=== PATIENT | male | born 1965 | race Caucasian/White ===

== ENCOUNTER 2018-03-21 08:27 | Day surgery (SDC) | payer MEDICARE ==
[2018-03-20 11:30] VITALS: BMI 31.4
[2018-03-21] MEDS ORDERED: Lidocaine Hydrochloride 5 ML INJ ONE (10:21)
[2018-03-21] MEDS ORDERED: Propofol 10 mg/ml Inj (20 ML) ONE ×3 (10:21→11:00)
[2018-03-21] MEDS ORDERED: Simethicone 40 mg/0.6 ml Liquid (30 ml) ONE ×2 (10:36→10:44)
[2018-03-21 11:15] VITALS: TEMP 96.9
[2018-03-21 11:33] VITALS: O2SAT 100
[2018-03-21 12:31] VITALS: BP 121/73; PULSE 70; RESP 18
== END 2018-03-21 12:15 | disposition home or self-care (01) ==
LOC: C.ENDO 08:27
PROVIDERS: ATTEND Internal Medicine Gastroenterology
DX: Z12.11 Encounter for screening for malignant neoplasm of colon (principal); D12.3 Benign neoplasm of transverse colon; K57.30 Diverticulosis of large intestine without perforation or abscess without bleeding; K64.1 Second degree hemorrhoids; I10 Essential (primary) hypertension
CPT/HCPCS: 45380; 45381; 45385; 88305; J2704